=== PATIENT | female | born 1975 | race Caucasian/White ===

== ENCOUNTER 2016-06-25 03:22 | Emergency (ER) | payer BC, OTHER ==
[2016-06-25] MEDS ORDERED: ASPIRIN 81 MG TAB.CHEW PO ONE (03:40)
[2016-06-25] MEDS ORDERED: ASPIRIN 81 MG TAB.CHEW ONE (03:41)
--- NOTE | 2016-06-25 03:44 | ERNOTE ---
Chest Pain/Cardiac HPI Chief Complaint: Chest Pain Time Seen by Provider: 06/25/16 03:39 Source: patient Exam Limitations: no limitations Immunizations: IMMUNIZATION HX Immunizations Up to Date Yes History of Influenza Vaccine Yes Hx Pneumococcal Vaccination No Allergies/Adverse Reactions: Allergies No Known Allergies Allergy (Verified 06/25/16 03:32) Home Medications: HOME MEDICATIONS Levothyroxine Sodium [Levo-T] 100 mcg PO DAILY 06/25/16 [Last Taken 06/24/16 08: 00] Narrative: pt comes in for chest pain which she has had off and on for one month. Chest pain is substernal and radiates to left shoulder. it lasts minutes. Tonight she had pain during intercourse while she was on bottom position and her partner is morbidly obese. She feels dizzy during these chest pain episodes. She has not seen a physician for this. she has a 2/10 chest pain which she explains as a tightness. Review of Systems - Review of Systems Constitutional: Present: no symptoms reported EYE: Present: no symptoms reported ENT: Present: no symptoms reported Respiratory: Present: no symptoms reported Cardiology: Present: See HPI Gastrointestinal/Abdominal: Present: no symptoms reported Genitourinary: Present: no symptoms reported Musculoskeletal: Present: no symptoms reported - Patient's Past Medical History Patient History - Medical: Hypothyroidism Patient History - Cardiac/Respiratory: Asthma Patient History - Cancer: No Hx of Cancer Patient History - Surgical Procedures: T & A - Family History Mother Family History - Medical: No pertinent hx Family History - Cardiac/Respiratory: No pertinent hx Family History - Cancer: Other Father Family History - Medical: No pertinent hx Family History - Cardiac/Respiratory: No pertinent hx Family History - Cancer: No pertinent family hx - Social History Smoking Status: Current every day smoker Patient requests Smoking Cessation Consult: No Initiate information on Smoking Cessation: No - Immunizations Immunizations Up to Date: Yes Hx Pneumococcal Vaccination: No History of Influenza Vaccine: Yes Physical Exam - Physical Exam General Appearance: Present: wd/wn, alert, no apparent distress Neck: Present: normal inspection, nontender, supple, full range of motion Respiratory: Present: no respiratory distress, normal breath sounds, no accessory muscle use, chest nontender, lungs clear Cardiovascular/Chest: Present: regular rate, rhythm, normal peripheral pulses, other - pt has a 2/6 systolic murmur and states that she has never been told this Gastrointestinal/Abdominal: Present: other - obese Extremity Exam: Present: normal inspection Neurological Exam: Present: alert, oriented, normal mood/affect, no motor/ sensory deficits ED Progress - Results and Orders Patient's Lab Results:: I have reviewed the patient's lab results. - Vital Signs Patient's Vital Signs:: I have reviewed the patient's vital signs. Vital Signs: Vital Signs 06/25/16 06/25/16 03:24 03:36 Temperature 36.8 C Pulse Rate 95 98 Respiratory 18 Rate Blood Pressure 145/87 O2 Sat by Pulse 99 Oximetry - EKG EKG: NSR - X-Ray X-Ray #1 X-Ray: chest - Progress/Reassessment Chief Complaint: Chest Pain Plan - Plan Plan: Patient's EKG is normal sinus rhythm, her chest x-ray is normal, her cardiac enzymes are within normal limits, patient has had this pain for approximately 24 hours for that the patient has had this pain for approximately a month. I do not believe this patient is having cardiac chest pain and she needs to follow -up with her primary care physician to investigate these pains more. Departure - Departure Clinical Impression: Chest pain of uncertain etiology Disposition: Home self-care Condition: Good Instructions: Heart Murmur Additional Instructions: Please follow-up with your primary care physician to further investigate your chest pain and murmur Referrals: Nazia Darby MD [Primary Care Provider] -
[2016-06-25 03:47] LABS: Hematocrit 45.6 % (37.0-47.0); Hemoglobin 15.5 gm/dL (12.5-16.0); Mean Cell Volume 87.4 fl (78-100); Mean Corpuscular Hemoglobin 29.7 pg (27-31); Mean Platelet Volume 10.1 fl (6.0-9.5); Neutrophil # 5.3 K/mm3 (1.3-6.0); Neutrophil % 57.4 % (42-75.0); Platelet Count 254 K/mm3 (150-450); Red Blood Count 5.22 M/mm3 (4.2-5.4); Red Cell Distribution Width 12.9 % (11.5-14.0); White Blood Count 9.3 K/mm3 (4.0-10.5)
[2016-06-25 04:08] LABS: Hemoglobin A1C 5.1 % (4.00-6.0)
[2016-06-25 04:09] LABS: Prothrombin Time (Patient) 10.9 Seconds (9.4-11.4)
[2016-06-25 04:10] LABS: INR 1.05 INR (0.90-1.10)
[2016-06-25 04:17] LABS: ALT 46 U/L (19-67); AST 29 U/L (0-48); Albumin * 4.1 gm/dl (3.4-5.0); Alkaline Phosphatase * 50 U/L (50-170); Anion Gap 15.4 mmol/L (6.8-13.8); Bilirubin, Total 0.9 mg/dL (0.0-1.1); Blood Urea Nitrogen 10 mg/dL (3-23); Calcium * 9.4 mg/dL (7.9-10.9); Carbon Dioxide 26.2 mmol/L (24-32.6); Chloride 103 mmol/L (97-106); Glucose * 112 mg/dL (70-110); Potassium 3.6 mmol/L (3.4-4.6); Sodium 141 mmol/L (132-142); TSH * 1.893 uIU/mL (0.358-3.74); Total Protein 7.7 gm/dL (6.2-8.2); Troponin I Less than 0.017 ng/ml (0.00-0.10)
[2016-06-25 04:43] VITALS: BP 143/81
== END 2016-06-25 04:45 | disposition home or self-care (01) ==
LOC: ER 03:22
DX: R07.9 Chest pain, unspecified (principal); Z72.0 Tobacco use; E03.9 Hypothyroidism, unspecified

== ENCOUNTER 2016-09-10 21:54 | Emergency (ER) | payer BC, OTHER ==
--- NOTE | 2016-09-10 22:33 | ERNOTE ---
Dizziness ER Record Presenting Symptoms: weakness - / lightheadedness Time Seen by Provider: 09/10/16 22:11 Source: patient Exam Limitations: intoxication Immunizations: IMMUNIZATION HX Immunizations Up to Date Yes History of Influenza Vaccine Yes Hx Pneumococcal Vaccination No Allergies/Adverse Reactions: Allergies Allergy/AdvReac Type Severity Reaction Status Date / Time No Known Allergies Allergy Verified 09/10/16 22:05 Home Medications: HOME MEDICATIONS Levothyroxine Sodium [Levo-T] 100 mcg PO DAILY 06/25/16 [Last Taken 06/24/16 08: 00] Meclizine HCl 25 mg PO TID PRN #20 tablet 09/11/16 [Last Taken Unknown] - History of Present Illness Narrative: Pt states for 3 days she has had episodes of lightheadedness that seems to happen after eating. She has not had any syncopal episodes Timing and Duration: sudden onset, intermittent Noted on awakening:: No Severity: max: moderate Severity: currently: mild Associated Symptoms: Present: nausea, vomiting Sense of movement: Present: none Decreased ability to stand/walk:: Present: weak, off balance Usually:: Present: walks w/o assistance Modifying Factors - (Improves): Reports: nothing Modifying Factors - (Worsens): Reports: nothing Review of Systems - Review of Systems Constitutional: Absent: recent illness, fever, chills EYE: Present: blurred vision ENT: Present: no symptoms reported Respiratory: Present: shortness of breath - with any activity Cardiology: Absent: chest pain, syncope Gastrointestinal/Abdominal: Present: nausea, abdominal pain Genitourinary: Present: other - some vaginal spotting. Absent: frequency, pain , dysuria Musculoskeletal: Present: no symptoms reported Skin: Absent: rash Neurological: Present: See HPI, dizziness/light-headedness. Absent: numbness, tingling Endocrine: Absent: excessive sweating, flushing, increased thirst, increased urine Hematologic/Lymphatic: Present: no symptoms reported Psych: Present: no symptoms reported - Patient's Past Medical History Patient History - Medical: Hypothyroidism Patient History - Cardiac/Respiratory: Asthma Patient History - Cancer: No Hx of Cancer Patient History - Surgical Procedures: T & A LMP (females 10-50): unknown - Family History Mother Family History - Medical: No pertinent hx Family History - Cardiac/Respiratory: No pertinent hx Family History - Cancer: Other Father Family History - Medical: No pertinent hx Family History - Cardiac/Respiratory: No pertinent hx Family History - Cancer: No pertinent family hx - Social History Living Situations: home Abuse History: No History of abuse Psych History: No pertinent hx Smoking Status: Current every day smoker Have you smoked in the past 12 months: Yes Do you dip or chew tobacco: No Alcohol Use: rarely Drug Use: none - Immunizations Immunizations Up to Date: Yes Hx Pneumococcal Vaccination: No History of Influenza Vaccine: Yes Physical Exam - Physical Exam General Appearance: Present: wd/wn, alert, no apparent distress Head Exam: Present: normal inspection, no evidence of injury Eye Exam: Normal inspection: bilateral Ears, Nose, Throat: Present: normal ENT inspection Neck: Present: normal inspection, nontender Respiratory: Present: no respiratory distress, normal breath sounds, lungs clear Cardiovascular/Chest: Present: regular rate, rhythm, no murmur Gastrointestinal/Abdominal: Present: normal bowel sounds, tenderness - epigastric Back Exam: Present: normal inspection, normal range of motion, no CVA tenderness Extremity Exam: Present: normal inspection, normal range of motion, no edema Neurological Exam: Present: alert, oriented, normal mood/affect, no motor/ sensory deficits Skin Exam: Present: normal color, warm/dry Lymphatic Exam: Present: no adenopathy ED Progress - Results and Orders Patient's Lab Results:: I have reviewed the patient's lab results. Results and Orders: Laboratory Tests 09/10/16 09/10/16 09/10/16 23:05 23:05 23:18 WBC 10.0 Hgb 15.4 Hct 45.3 Plt Count 288 Neutrophils % 76.4 H Sodium 141 Potassium 4.1 BUN 9 Creatinine 1.03 Random Glucose 108 Total Bilirubin 0.6 AST 19 ALT 34 Urine Color Pale yellow Urine Appearance Clear Urine pH 6.0 Ur Specific [place] <=1.005 Urine Protein Negative Urine Glucose (UA) Negative Urine Ketones Negative Urine Blood 5 H Urine Nitrate Negative Urine Bilirubin Negative Urine Urobilinogen Normal Ur Leukocyte Esterase Negative Urine RBC None seen Urine WBC None seen Ur Epithelial Cells None seen Urine Bacteria None seen Urine Culture Comments No culture indicated - Vital Signs Vital Signs: Vital Signs 09/10/16 21:57 Temperature 37.2 C Pulse Rate 103 H Respiratory 16 Rate Blood Pressure 165/83 O2 Sat by Pulse 100 Oximetry - EKG EKG: NSR, no ST T wave changes EKG read: Interp. by me - Progress/Reassessment Chief Complaint: Dizziness Departure Clinical Impression: Lightheadedness - Departure Disposition: Home self-care Condition: Good Instructions: Dizziness, [id number] Referrals: Nazia Darby MD [Primary Care Provider] - Prescriptions: Meclizine HCl 25 mg PO TID PRN #20 tablet PRN Reason: Vertigo
[2016-09-10] MEDS ORDERED: NORMAL SALINE 1,000 ML IV ONE (22:55)
[2016-09-10 23:10] LABS: Hematocrit 45.3 % (37.0-47.0); Hemoglobin 15.4 gm/dL (12.5-16.0); Mean Corpuscular Hemoglobin 30.3 pg (27-31); Mean Platelet Volume 9.7 fl (6.0-9.5); Neutrophil # 7.7 K/mm3 (1.3-6.0); Neutrophil % 76.4 % (42-75.0); Platelet Count 288 K/mm3 (150-450); Red Blood Count 5.09 M/mm3 (4.2-5.4); Red Cell Distribution Width 12.2 % (11.5-14.0)
[2016-09-10] MEDS ORDERED: ONDANSETRON HCL/PF 2 MG/ML VIAL IV ONE (23:19)
[2016-09-10] MEDS ORDERED: ONDANSETRON HCL/PF 2 MG/ML VIAL ONE (23:20)
[2016-09-10 23:23] LABS: Albumin * 3.9 gm/dl (3.4-5.0); Anion Gap 14.8 mmol/L (6.8-13.8); BUN/Creatinine Ratio 8.7 (9.0-21.6); Bilirubin, Total 0.6 mg/dL (0.0-1.1); Ca. Corrected For Albumin 8.5 mg/dL (8.4-10.2); Calcium * 8.7 mg/dL (7.9-10.9); Carbon Dioxide 25.3 mmol/L (24-32.6); Potassium 4.1 mmol/L (3.4-4.6); Total Protein 7.5 gm/dL (6.2-8.2)
[2016-09-10 23:33] LABS: Urine Bilirubin Negative (NEGATIVE); Urine Ketone Negative (NEGATIVE); Urine Nitrite Negative (NEGATIVE); Urine Protein Negative (NEGATIVE); Urine Specific Gravity <=1.005 SP.GR. (1.005-1.010); Urine Urobilinogen Normal (NORMAL)
[2016-09-10 23:49] LABS: Urine Appearance Clear; Urine Bacteria None Seen; Urine Blood 5 /ul (NEGATIVE); Urine Color Pale Yellow; Urine RBC None Seen /hpf (0-5); Urine WBC None Seen /hpf (0-5)
[2016-09-11] MEDS ORDERED: ACETAMINOPHEN 500 MG TABLET PO ONE (00:31)
[2016-09-11] MEDS ORDERED: MECLIZINE HCL 25 MG TABLET PO ONE (00:56)
[2016-09-11] MEDS ORDERED: MECLIZINE HCL 25 MG TABLET ONE (01:03)
[2016-09-11 01:09] VITALS: BP 128/69
== END 2016-09-11 01:06 | disposition home or self-care (01) ==
LOC: ER 21:54
DX: R42 Dizziness and giddiness (principal); R53.1 Weakness; F17.200 Nicotine dependence, unspecified, uncomplicated
CPT/HCPCS: 36415; 80053; 81001; 85025; 93005; 96374; 99283; J2405

== ENCOUNTER 2016-10-11 22:38 | Emergency (ER) | payer BC, OTHER ==
[2016-10-11 23:17] LABS: Hematocrit 43.3 % (37.0-47.0); Hemoglobin 15.2 gm/dL (12.5-16.0); Mean Corpuscular Hemoglobin 30.9 pg (27-31); Mean Corpuscular Hgb Conc 35.1 g/dl (32-36); Mean Platelet Volume 9.9 fl (6.0-9.5); Neutrophil # 5.8 K/mm3 (1.3-6.0); Neutrophil % 65.8 % (42-75.0); Platelet Count 286 K/mm3 (150-450); Red Blood Count 4.92 M/mm3 (4.2-5.4); Red Cell Distribution Width 12.1 % (11.5-14.0); White Blood Count 8.9 K/mm3 (4.0-10.5)
[2016-10-11 23:37] LABS: ALT 33 U/L (19-67); AST 14 U/L (0-48); Albumin * 3.8 gm/dl (3.4-5.0); Alkaline Phosphatase * 51 U/L (50-170); Anion Gap 6.1 mmol/L (6.8-13.8); BUN/Creatinine Ratio 13.5 (9.0-21.6); Bilirubin, Total 0.6 mg/dL (0.0-1.1); Blood Urea Nitrogen 14 mg/dL (3-23); Ca. Corrected For Albumin 8.4 mg/dL (8.4-10.2); Calcium * 8.6 mg/dL (7.9-10.9); Carbon Dioxide 22.3 mmol/L (24-32.6); Chloride 98 mmol/L (97-106); Glucose * 146 mg/dL (70-110); Potassium 3.4 mmol/L (3.4-4.6); Sodium 123 mmol/L (132-142); Total Protein 7.4 gm/dL (6.2-8.2); Troponin I Less than 0.017 ng/ml (0.00-0.10)
--- NOTE | 2016-10-11 23:49 | ERNOTE ---
Chest Pain/Cardiac HPI Chief Complaint: Chest Pain Time Seen by Provider: 10/11/16 22:57 Source: patient Exam Limitations: no limitations Immunizations: IMMUNIZATION HX Immunizations Up to Date Yes History of Influenza Vaccine Yes Hx Pneumococcal Vaccination No Allergies/Adverse Reactions: Allergies No Known Allergies Allergy (Verified 09/10/16 22:05) Home Medications: HOME MEDICATIONS Levothyroxine Sodium [Levo-T] 100 mcg PO DAILY 06/25/16 [Last Taken 06/24/16 08: 00] Levonorgestrel [Mirena] 1 each IY 10/11/16 [Last Taken Unknown] Lisinopril 20 mg PO DAILY 10/11/16 [Last Taken Unknown] Sertraline HCl [Zoloft] 25 mg PO DAILY 10/11/16 [Last Taken Unknown] Narrative: Here for chest pain for three days. She has recently been started on Zoloft and she does not like the side effects Review of Systems - Review of Systems Constitutional: Present: no symptoms reported EYE: Present: no symptoms reported ENT: Present: no symptoms reported Respiratory: Present: no symptoms reported Cardiology: Present: See HPI - "I feel like my heart is racing" has Chest pain now Musculoskeletal: Present: no symptoms reported Skin: Present: no symptoms reported - Patient's Past Medical History Patient History - Medical: Anxiety, Hypothyroidism Patient History - Cardiac/Respiratory: Asthma, Hypertension Patient History - Cancer: No Hx of Cancer Patient History - Surgical Procedures: T & A Patient History - Other: None LMP (females 10-50): merena - Family History Mother Family History - Medical: No pertinent hx Family History - Cardiac/Respiratory: No pertinent hx Family History - Cancer: Other Father Family History - Medical: No pertinent hx Family History - Cardiac/Respiratory: No pertinent hx Family History - Cancer: No pertinent family hx - Social History Living Situations: home Abuse History: No History of abuse Psych History: Hx of Anxiety Smoking Status: Never smoker Have you smoked in the past 12 months: No Do you dip or chew tobacco: No Alcohol Use: none Drug Use: none - Immunizations Immunizations Up to Date: Yes Hx Pneumococcal Vaccination: No History of Influenza Vaccine: Yes Physical Exam - Physical Exam General Appearance: Present: wd/wn, alert, no apparent distress - he is obese and states that he is slightly short of breath however his respirations are even and unlabored Head Exam: Present: normal inspection, no evidence of injury Ears, Nose, Throat: Present: normal ENT inspection Neck: Present: normal inspection, nontender Respiratory: Present: no respiratory distress, normal breath sounds, no accessory muscle use, chest nontender, lungs clear Cardiovascular/Chest: Present: regular rate, rhythm, no murmur, normal peripheral pulses Gastrointestinal/Abdominal: Present: normal bowel sounds, nontender, nondistended, soft - LVAD noted with tubes on right side of abdomen ED Progress - Results and Orders Patient's Lab Results:: I have reviewed the patient's lab results. - Vital Signs Patient's Vital Signs:: I have reviewed the patient's vital signs. Vital Signs: Vital Signs 10/11/16 10/11/16 10/11/16 22:53 22:54 23:25 Temperature 37.0 C Pulse Rate 103 H 94 104 H Respiratory 16 20 Rate Blood Pressure 136/93 140/92 O2 Sat by Pulse 98 97 Oximetry 10/11/16 23:40 Temperature Pulse Rate 98 Respiratory 16 Rate Blood Pressure 131/79 O2 Sat by Pulse 97 Oximetry - Progress/Reassessment Chief Complaint: Chest Pain Plan - Plan Plan: I contacted Vishal and Dr. Gilbert at [facility] who are this patient's Cardiac care team. In light of this patient being short of breath and his Ddimer being elevated at 1.22 We all agreed that he should be transferred to [facility] Telemetry unit Dr. Gilbert accepted the patient to their service. However Pt was adamant that he wanted to be taken and transferred there via private vehicle by his . Departure - Departure Clinical Impression: Shortness of breath Left ventricular assist device (LVAD) complication Qualifiers: Encounter type: initial encounter Qualified Code(s): T82.9XXA - Unspecified complication of cardiac and vascular prosthetic device, implant and graft, initial encounter Disposition: Home self-care Condition: Good Instructions: Ventricular Assist Device, Home Care Referrals: Deepa Mobley, [Primary Care Provider] -
[2016-10-12 00:08] LABS: TSH * 0.453 uIU/mL (0.358-3.74)
[2016-10-12] MEDS ORDERED: ACETAMINOPHEN 325 MG TABLET PO ONE (00:19)
[2016-10-12] MEDS ORDERED: ACETAMINOPHEN 325 MG TABLET ONE (00:22)
--- NOTE | 2016-10-12 00:33 | ERNOTE ---
Medical Problem HPI - General Chief Complaint: Chest Pain Time Seen by Provider: 10/11/16 22:57 Source: patient Exam Limitations: no limitations - Immun/Allergies/Home Medications Immunizations: IMMUNIZATION HX Immunizations Up to Date Yes History of Influenza Vaccine Yes Hx Pneumococcal Vaccination No Allergies/Adverse Reactions: Allergies No Known Allergies Allergy (Verified 09/10/16 22:05) Home Medications: HOME MEDICATIONS Levothyroxine Sodium [Levo-T] 100 mcg PO DAILY 06/25/16 [Last Taken 06/24/16 08: 00] Levonorgestrel [Mirena] 1 each IY 10/11/16 [Last Taken Unknown] Lisinopril 20 mg PO DAILY 10/11/16 [Last Taken Unknown] Sertraline HCl [Zoloft] 25 mg PO DAILY 10/11/16 [Last Taken Unknown] - History of Present History Narrative: here for heart racing and chest pains for three days. Pt was recently started on Zoloft however she states that she did not like its effects and asked her PCP to be weaned off of it. She states "my heart is racing" only has a 1/10 chest pain right now Review of Systems - Review of Systems Constitutional: Present: no symptoms reported EYE: Present: no symptoms reported ENT: Present: no symptoms reported Respiratory: Present: no symptoms reported Cardiology: Present: See HPI - chest pain has been there for three days and it is now 1/10 and substernal Gastrointestinal/Abdominal: Present: no symptoms reported Genitourinary: Present: no symptoms reported - Patient's Past Medical History Patient History - Medical: Anxiety, Hypothyroidism Patient History - Cardiac/Respiratory: Asthma, Hypertension Patient History - Cancer: No Hx of Cancer Patient History - Surgical Procedures: T & A Patient History - Other: None LMP (females 10-50): merena - Family History Mother Family History - Medical: No pertinent hx Family History - Cardiac/Respiratory: No pertinent hx Family History - Cancer: Other Father Family History - Medical: No pertinent hx Family History - Cardiac/Respiratory: No pertinent hx Family History - Cancer: No pertinent family hx - Social History Living Situations: home Abuse History: No History of abuse Psych History: Hx of Anxiety Smoking Status: Never smoker Have you smoked in the past 12 months: No Do you dip or chew tobacco: No Alcohol Use: none Drug Use: none - Immunizations Immunizations Up to Date: Yes Hx Pneumococcal Vaccination: No History of Influenza Vaccine: Yes Physical Exam - Physical Exam General Appearance: Present: wd/wn, alert, no apparent distress Head Exam: Present: normal inspection Ears, Nose, Throat: Present: normal ENT inspection Neck: Present: normal inspection, nontender Respiratory: Present: no respiratory distress, normal breath sounds, no accessory muscle use, chest nontender, lungs clear Cardiovascular/Chest: Present: regular rate, rhythm, no murmur, normal peripheral pulses Gastrointestinal/Abdominal: Present: normal bowel sounds, nontender, nondistended, soft, no organomegaly ED Progress - Results and Orders Patient's Lab Results:: I have reviewed the patient's lab results. - Vital Signs Patient's Vital Signs:: I have reviewed the patient's vital signs. Vital Signs: Vital Signs 10/11/16 10/11/16 10/11/16 22:53 22:54 23:25 Temperature 37.0 C Pulse Rate 103 H 94 104 H Respiratory 16 20 Rate Blood Pressure 136/93 140/92 O2 Sat by Pulse 98 97 Oximetry 10/11/16 10/12/16 23:40 00:12 Temperature Pulse Rate 98 88 Respiratory 16 16 Rate Blood Pressure 131/79 136/70 O2 Sat by Pulse 97 98 Oximetry - EKG EKG Comments: normal sinus rhythm - Progress/Reassessment Chief Complaint: Chest Pain Plan - Plan Plan: patients tests are all normal. However she still states "I feel my heart pounding". I feel as if this is a medication reaction and a reaction to her Zoloft. I have asked her to wean off. I offered to admit patient to observe her all night and she REFUSED ADMISSION. She states that she has an appointment with her doctor tomorrow. Departure - Departure Clinical Impression: Heart palpitations Chest pain Qualifiers: Chest pain type: unspecified Qualified Code(s): R07.9 - Chest pain, unspecified Disposition: Home self-care Condition: Good Instructions: Drug Allergy, [id number] Additional Instructions: please wean off of your Zoloft and follow up with your PCP tomorrow Referrals: Deepa Mobley, DO [Primary Care Provider] -
[2016-10-12 00:44] VITALS: BP 127/69
== END 2016-10-12 00:52 | disposition home or self-care (01) ==
LOC: ER 22:38
DX: R00.2 Palpitations (principal); R07.9 Chest pain, unspecified; F41.9 Anxiety disorder, unspecified; I10 Essential (primary) hypertension